=== PATIENT | female | born 1985 | race Caucasian/White ===

== ENCOUNTER 2020-08-22 20:58 | Emergency (ER) | payer MEDICARE, MEDICAID, OTHER ==
[~2020-08-22] VITALS: Ht 167.6 cm; Wt 52.2 kg
[~2020-08-22 20:58] MED LIST: PRE NATAL
[2020-08-22] MEDS ORDERED: OXYCODONE W/ ACETAMINOPHEN 5/325MG TABLET PO ONE (22:15)
[2020-08-23 00:30] VITALS: BP 122/86
== END 2020-08-23 00:56 | disposition home or self-care (01) ==
LOC: ER 21:00
DX: R51.9 Headache, unspecified (principal); M54.5 Low back pain; M54.2 Cervicalgia; F17.210 Nicotine dependence, cigarettes, uncomplicated; F12.10 Cannabis abuse, uncomplicated; V43.52XA Car driver injured in collision with other type car in traffic accident, initial encounter; Y93.89 Activity, other specified; Y92.488 Other paved roadways as the place of occurrence of the external cause; Y99.8 Other external cause status
CPT/HCPCS: 72125; 72128; 72131

== ENCOUNTER 2023-10-06 23:33 | Emergency (ER) | payer MEDICAID, MEDICARE, OTHER ==
[~2023-10-06] VITALS: Ht 167.6 cm; Wt 59.4 kg
[2023-10-07] MEDS: HYDROmorphone HCL 2 MG/ML VL/or syr IM ONE (01:57)
[2023-10-07 02:25] VITALS: BP 128/88
[2023-10-07 02:37] VITALS: PULSE 92; RESP 24; O2SAT 92
== END 2023-10-07 02:49 | disposition short-term general hospital (02) ==
LOC: ER 23:33
DX: S02.2XXA Fracture of nasal bones, initial encounter for closed fracture (principal); S02.832A Fracture of medial orbital wall, left side, initial encounter for closed fracture; F17.210 Nicotine dependence, cigarettes, uncomplicated; F15.90 Other stimulant use, unspecified, uncomplicated; Z79.899 Other long term (current) drug therapy; X58.XXXA Exposure to other specified factors, initial encounter; Y93.89 Activity, other specified; Y92.89 Other specified places as the place of occurrence of the external cause; Y99.8 Other external cause status
CPT/HCPCS: 70486; 96372; 99285; J1170